=== PATIENT | male | born 1960 | race Caucasian/White ===

== ENCOUNTER 2016-05-28 15:44 | Emergency (ER) | payer MEDICARE, OTHER ==
[2016-05-28] MEDS ORDERED: OPTIRAY 350 100 ML VIAL HMH IV ONE (15:45)
== END 2016-05-28 21:44 | disposition home or self-care (01) ==
LOC: ER 15:44
DX: R10.84 Generalized abdominal pain (principal); R19.7 Diarrhea, unspecified; K92.1 Melena; I10 Essential (primary) hypertension; E78.00 Pure hypercholesterolemia, unspecified
CPT/HCPCS: 36415; 74177; 80053; 81003; 83690; 85025; 99284; Q9967